=== PATIENT | male | born 1985 | race Caucasian/White ===

== ENCOUNTER → 2021-12-15 | Outpatient (CLI) | payer BC ==
--- NOTE | 2021-12-15 11:54 | RAD ---
EXAM: XR CHEST 2V 12/15/2021 11:41 AM CLINICAL INDICATION: Cough, shortness of breath, Covid on November 15. COMPARISON: None TECHNIQUE: PA and lateral view of the chest FINDINGS: The heart and mediastinum are normal. Lungs are well-expanded and clear. No consolidatio n, pleural effusion, or pneumothorax. Pulmonary vascularity is normal. No acute osseous abnormality. IMPRESSION: Normal chest radiograph. Electronically signed by: Lara Weber MD (12/15/2021 11:52 AM) [id number]
== END ==
LOC: RAD 11:24
PROVIDERS: ATTEND Nurse Practitioner Family
DX: R06.02 Shortness of breath (principal); R05.9 Cough, unspecified; Z86.16 Personal history of COVID-19
CPT/HCPCS: 71046